=== PATIENT | male | born 1970 | race Two or more races ===

== ENCOUNTER 2020-02-07 17:39 | Emergency (ER) | payer SELFPAY ==
[~2020-02-07] VITALS: Ht 165.1 cm; Wt 80.0 kg
[2020-02-07 17:44] VITALS: BP 136/85
== END 2020-02-07 18:30 | disposition home or self-care (01) ==
LOC: ER 17:39
DX: R50.9 Fever, unspecified (principal); R09.81 Nasal congestion
CPT/HCPCS: 99281